=== PATIENT | male | born 1945 | race Caucasian/White ===

== ENCOUNTER 2020-12-05 14:30 | Day surgery (SDC) | payer MEDICARE ==
[~2020-12-05] VITALS: Ht 171.4 cm; Wt 85.9 kg
[2020-12-05] VITALS (10 sets, daily range): BP systolic 175–199; BP diastolic 78–102
[~2020-12-05 14:30] MED LIST: AMLO2.5T2 PO; APIX5TAB3 PO; ASCO100T9 PO; ATOR20TA66 PO; CHOL10002 PO; FOLI0.4T2 PO; GLYB5TAB7 PO; HYDR-3973 PO; LACT1CAP26 PO; LOSA50TA3 PO; MAGN400C PO; METO-395 PO; MORP15TA PO; NYST1000 PO; SENN-93 PO; [UNRECOGNIZED DRUG - CODE] PO
[2020-12-05] MEDS ORDERED: fentaNYL/PF 50MCG/1 ML 2ML syringe ONE (15:14)
[2020-12-05] MEDS ORDERED: MIDAZolam 5mg/5ml vial ONE (15:14)
[2020-12-05] MEDS ORDERED: LIDOcaine Viscous 15ml cup ONE (15:15)
[2020-12-05] MEDS ORDERED: iohexol 300 MG/1 ML 50ml polymer ONE (15:15)
[2020-12-05] MEDS ORDERED: glucagon, human recombinant 1mg kit ONE (15:15)
[2020-12-05] MEDS ORDERED: levoFLOXACIN-Levaquin 500mg/D5 100 ML IV ONE (15:15)
== END 2020-12-05 18:30 | disposition home or self-care (01) ==
LOC: GI LAB 14:30
PROVIDERS: ATTEND Internal Medicine Gastroenterology
DX: T85.520A Displacement of bile duct prosthesis, initial encounter (principal); K83.8 Other specified diseases of biliary tract; E11.9 Type 2 diabetes mellitus without complications; I10 Essential (primary) hypertension
CPT/HCPCS: 43264; 74328; 99152; 99153; C1769; J1610; J1956; J2250; J3010; J7040; Q9967; 43260